=== PATIENT | female | born 2000 | race Caucasian/White ===

== ENCOUNTER 2023-01-25 13:54 | Outpatient (CLI) | payer BC, SELFPAY ==
--- NOTE | 2023-01-25 14:00 | CRLHL7_ITS ---
For Patients: As a result of the Century Cures Act, medical imaging exams and procedure reports are released immediately into your electronic medical record. You may view this report before your referring provider. If you have questions, please contact your health care provider. CLINICAL HISTORY: Pelvic and perineal pain TECHNIQUE: 2D kaplan scale ultrasound. In addition color Doppler and spectral Doppler analysis was performed of the pelvis using a transvaginal approach. FINDINGS: On transvaginal imaging, the myometrium has a normal uniform echotexture. The uterus measures 7.4 x 2.4 x 4.3 cm. The endometrial lining appears normal and measures 2 mm in thickness. The right ovary measures 2.9 x 1.5 x 2.1 cm in size and the left ovary measures 4.0 x 2.8 x 3.3 cm. The ovaries demonstrate normal arterial and venous blood flow on color Doppler and spectral Doppler analysis. Anechoic left ovarian cyst measuring 3.5 x 2.2 x 3.0 cm. A thin internal septation noted along with a small daughter cyst. Trace physiologic free fluid. IMPRESSION: Normal right ovary. No torsion. 3.5 cm left ovarian cyst with a single thin septation, considered benign. Dictated by Damian Crowley MD @ 01/26/2023 3:44:00 PM (Electronically Signed)
== END 2023-01-25 13:55 | disposition home or self-care (01) ==
PROVIDERS: Visit Provider Obstetrics & Gynecology
DX: R10.2 Pelvic and perineal pain (principal); N83.202 Unspecified ovarian cyst, left side
CPT/HCPCS: 76830; 87491; 87591; 93976